=== PATIENT | female | born 1975 | race Caucasian/White ===

== ENCOUNTER 2023-03-24 22:26 | Inpatient (IN) | payer BC ==
[~2023-03-24] VITALS: Ht 152.4 cm; Wt 45.5 kg
[2023-03-24] MEDS ORDERED: diphenhydrAMINE 50 mg/ml inj IM ONE (22:40)
[2023-03-24] MEDS ORDERED: LORazepam 2 mg/ml vial IM ONE (22:40)
[2023-03-24] MEDS ORDERED: haloperidol lactate 5mg/ml inj IM ONE (22:40)
[2023-03-24 22:55] LABS: BASOPHILS % (AUTO) 0.5 % (0-1); EOSINOPHILS % (AUTO) 0.1 % (0-6); HEMATOCRIT 34.4 % (35.0-45.0); LYMPHOCYTES # (AUTO) 1.8 X10'3 (1.1-4.8); MEAN CORPUSCULAR HEMOGLOBIN 31.8 PG (27.0-31.0); MEAN CORPUSCULAR HGB CONC 34.9 g/dL (33.0-36.5); MEAN CORPUSCULAR VOLUME 91.1 FL (78-98); MEAN PLATELET VOLUME 7.5 FL (7.4-10.4); MONOCYTES # (AUTO) 0.9 X10'3 (0-0.9); MONOCYTES % (AUTO) 10.1 % (2-12); NEUTROPHILS # (AUTO) 6.3 X10'3 (1.8-7.7); NEUTROPHILS % (AUTO) 69.3 % (42-75); PLATELET COUNT 273 X10'3 (140-440); RED BLOOD COUNT 3.77 X10'6 (4.20-5.60); RED CELL DISTRIBUTION WIDTH 12.9 % (11.5-14.5); WHITE BLOOD COUNT 9.1 X10'3 (4.5-11.0)
--- NOTE | 2023-03-24 23:12 | NUR ---
PT ATTEMPTED TO [facility] AFTER RECIEVING IM ATIVAN, HALDOL, AND BENADRYL. PT WAS LOCATED IN THE MAIN LOBBY. MECHANICAL INTERN ATTEMPTED TO ASK THE PT TO RETURN TO THE ROOM AND EXPLAINED THE 5150. PT REFUSED TO RETURN TO ROOM. PT THREW HERSELF ON THE GROUND AND WAS CARRIED BACK TO ROOM BY MECHANICAL INTERN AND EMT.
[2023-03-24 23:17] LABS: ALANINE AMINOTRANSFERASE 30 U/L (12-78); ALBUMIN 4.7 G/DL (3.4-5.0); ALBUMIN/GLOBULIN RATIO 1.9 (1.1-1.5); ALKALINE PHOSPHATASE 42 IU/L (46-116); ANION GAP 16 (8-16); ASPARTATE AMINO TRANSFERASE 44 U/L (10-37); BILIRUBIN,TOTAL 0.6 MG/DL (0.1-1.0); BLOOD UREA NITROGEN 5 MG/DL (7-18); BUN/CREATININE RATIO 7.1 (10.0-20.0); CALCIUM 8.7 MG/DL (8.5-10.1); CHLORIDE 86 MMOL/L (99-107); ETHANOL < 0.010 GM/DL (0.0-0.010); GLUCOSE 176 MG/DL (70-104); SODIUM 122 MMOL/L (135-145); TOTAL CARBON DIOXIDE 20.4 MMOL/L (24-32); TOTAL PROTEIN 7.2 G/DL (6.4-8.2); eGFR 90 ML/MIN
[2023-03-24 23:31] LABS: ACETAMINOPHEN < 2.0 UG/ML (10-30); POTASSIUM 2.6 MMOL/L (3.5-5.1)
[2023-03-24] MEDS ORDERED: normal saline 1000ML IV soln IVB ONE (23:40)
[2023-03-25] MEDS ORDERED: magnesium Cl slow-release 64mg tablet PO PRN (00:25)
[2023-03-25] MEDS ORDERED: mag hydrox/Alum hydrox/simeth 30ml oral suspension PO PRN (00:25)
[2023-03-25] MEDS ORDERED: potassium Cl 20 mEq SR tablet PO PRN ×2 (00:25)
[2023-03-25] MEDS ORDERED: potassium Cl 40MEQ/1/2NS 520ml 520 ML IV PRN (00:25)
[2023-03-25] MEDS ORDERED: magnesium hydroxide 30ml (MOM) UD suspension PO PRN (00:25)
[2023-03-25] MEDS ORDERED: magnesium 4gm in 100ml NS 100 ML IV PRN (00:25)
[2023-03-25] MEDS ORDERED: magnesium 2GM in 50ml NS 50 ML IV PRN (00:25)
[2023-03-25] MEDS ORDERED: acetaminophen 325mg tablet PO PRN (00:25)
[2023-03-25] MEDS ORDERED: ondansetron/PF 4mg/2ml inj IV PRN (00:25)
[2023-03-25] MEDS: potassium Cl 40MEQ/1/2NS 520ml 520 ML IV SCH ×2 (01:30→05:30)
[2023-03-25] MEDS ORDERED: UNABLE TO OBTAIN (01:50)
[2023-03-25 03:54] LABS: CLARITY,URINE SLIGHTLY CLOUDY (Clear); COLOR,URINE YELLOW (Yellow); GLUCOSE, URINE NEGATIVE (Neg); KETONES,URINE 15 mg/dl (Neg); LEUKOCYTE ESTERASE ,URINE NEGATIVE (Neg); NITRITES, URINE POSITIVE (Neg); OCCULT BLOOD,URINE TRACE-INTACT (Neg); PROTEIN,URINE NEGATIVE (Neg); UROBILINOGEN,URINE 0.2 E.U/dL (0.2-1.0)
[2023-03-25 03:55] LABS: URINE HCG NEGATIVE (NEG)
[2023-03-25 03:59] LABS: UA COLLECTION TYPE CLN CATCH MIDSTREAM
[2023-03-25 04:00] LABS: BACTERIA,URINE 4+ /HPF (Neg)
[2023-03-25 04:01] LABS: RBC,URINE 0-2 /HPF (0-2); SQUAMOUS EPITHELIAL CELL,UR MANY /LPF (FEW); TRANSITIONAL EPI CELLS,URINE FEW /HPF
[2023-03-25 04:09] LABS: URINE AMPHETAMINE SCREEN NEGATIVE (Neg); URINE BARBITUATE SCREEN NEGATIVE (Neg); URINE BENZODIAZEPINES SCREEN NEGATIVE (Neg); URINE CANNABINOID SCREEN POSITIVE (Neg); URINE COCAINE SCREEN NEGATIVE (Neg); URINE METHADONE SCREEN NEGATIVE (Neg); URINE OPIATE SCREEN NEGATIVE (Neg); URINE PHENCYCLIDINE SCREEN NEGATIVE (Neg)
--- NOTE | 2023-03-25 05:43 | NUR ---
pt refusing vitals at this time.
--- NOTE | 2023-03-25 07:08 | NUR ---
Patient comfortably sleeping and breathing normally at this time.
[2023-03-25] MEDS ORDERED: docusate sod 100mg capsule PO SCH (08:00)
[2023-03-25] MEDS ORDERED: K and/or MAG REPLACEMENT MC SCH (08:00)
[2023-03-25] MEDS ORDERED: enoxaparin 40mg/0.4ml syringe SUBCUT SCH (08:00)
--- NOTE | 2023-03-25 08:08 | NUR ---
Patient's and mother in law came to visit the patient. Updated them of patient's condition. said he has her wallet, insurance card that was found at the [facility] [employer]. Patient was instructed to the ER registration to check in and to give his name and contact number. Addendum: 03/25/23 at 0810 by NAKIA statd he will have to talk to the patient's mother to get the hearing aid battery as patient cannot hear well
[2023-03-25 08:13] LABS: MAGNESIUM 1.9 MG/DL (1.5-2.4); POTASSIUM 4.4 MMOL/L (3.5-5.1)
[2023-03-25] MEDS ORDERED: PARO40TA4 PO (09:48)
[2023-03-25] MEDS ORDERED: DIPH25TA62 PO (09:49)
[2023-03-25 09:50] LABS: BASOPHILS % (AUTO) 0.5 % (0-1); EOSINOPHILS % (AUTO) 0.3 % (0-6); HEMATOCRIT 33.1 % (35.0-45.0); HEMOGLOBIN 11.4 g/dl (12.0-16.0); LYMPHOCYTES # (AUTO) 0.8 X10'3 (1.1-4.8); LYMPHOCYTES % (AUTO) 16.8 % (21-51); MEAN CORPUSCULAR HEMOGLOBIN 31.7 PG (27.0-31.0); MEAN CORPUSCULAR HGB CONC 34.3 g/dL (33.0-36.5); MEAN CORPUSCULAR VOLUME 92.6 FL (78-98); MEAN PLATELET VOLUME 7.6 FL (7.4-10.4); MONOCYTES # (AUTO) 0.5 X10'3 (0-0.9); NEUTROPHILS # (AUTO) 3.5 X10'3 (1.8-7.7); NEUTROPHILS % (AUTO) 72.4 % (42-75); PLATELET COUNT 255 X10'3 (140-440); RED BLOOD COUNT 3.58 X10'6 (4.20-5.60); WHITE BLOOD COUNT 4.9 X10'3 (4.5-11.0)
[2023-03-25 10:14] LABS: ALANINE AMINOTRANSFERASE 26 U/L (12-78); ALBUMIN 3.7 G/DL (3.4-5.0); ALBUMIN/GLOBULIN RATIO 1.6 (1.1-1.5); ALKALINE PHOSPHATASE 31 IU/L (46-116); ANION GAP 6 (8-16); ASPARTATE AMINO TRANSFERASE 45 U/L (10-37); BILIRUBIN,TOTAL 0.6 MG/DL (0.1-1.0); BLOOD UREA NITROGEN 3 MG/DL (7-18); BUN/CREATININE RATIO 6.5 (10.0-20.0); CALCIUM 8.2 MG/DL (8.5-10.1); CHLORIDE 104 MMOL/L (99-107); CREATININE 0.46 MG/DL (0.40-0.90); GLUCOSE 94 MG/DL (70-104); POTASSIUM 4.5 MMOL/L (3.5-5.1); SODIUM 135 MMOL/L (135-145); TOTAL CARBON DIOXIDE 25.4 MMOL/L (24-32); eGFR > 90 ML/MIN
[2023-03-25] MEDS ORDERED: LORazepam 0.5 MG tablet PO PRN (10:35)
--- NOTE | 2023-03-25 11:23 | NUR ---
Patient awake, calm upon conversation with her. Pt denied suidical thought when I interviewed her. Pt cooperative at this time.
[2023-03-25] MEDS ORDERED: Lorazepam PO ×2 (12:40→12:50)
--- NOTE | 2023-03-25 16:06 | NUR ---
Pt. ambulated over from the main ER accompanied by Yusuf and her family. She is changing into green scrubs at this time.
--- NOTE | 2023-03-25 16:29 | NUR ---
[facility] is at bedside evaluating pt. at this time.
--- NOTE | 2023-03-25 16:51 | NUR ---
Pt's IV was removed from her left wrist, she tolerated the procedure well. Addendum: 03/25/23 at 1653 by MATTHEW Per , pt's labs are now WNL and she no longer requires IV.
--- NOTE | 2023-03-25 17:40 | NUR ---
Pt. was discharged from the unit accompanied by staff and her family to the the car of a family member who will be driving her oswaldo. Pt's belongings were returned to her by [employer]. This typewriter mechanic reviewed pt's discharge paperwork with her and she reported understanding. Pt. was sent with a prescription for Ativan which she will have filled at her preferred pharmacy. Pt. is able to contract for safety.
[2023-03-25 17:49] VITALS: BP 99/64
== END 2023-03-25 18:43 | disposition home or self-care (01) | DRG 71 ==
LOC: ER 22:27 → ED HOLD 03-25 00:29 → UNDODISIN 03-25 16:44 → ED HOLD 03-25 16:53
PROVIDERS: ADMIT Internal Medicine; ATTEND Family Medicine
DX: G93.41 Metabolic encephalopathy (principal); E87.1 Hypo-osmolality and hyponatremia; Z20.822 Contact with and (suspected) exposure to COVID-19; E87.6 Hypokalemia; F41.0 Panic disorder [episodic paroxysmal anxiety]; F29 Unspecified psychosis not due to a substance or known physiological condition; F32.A Depression, unspecified
CPT/HCPCS: 36415; 70450; 80053; 80305; 80320; 80329; 81001; 81025; 83735; 84132; 84443; 85025; 87811; 99285; G0378; J1200; J1630; J2060; J3480; J7030